=== PATIENT | male | born 1955 | race Asian ===

== ENCOUNTER → 2021-04-13 | Outpatient (CLI) | payer OTHER ==
[~2021-04-13] MED LIST: IOPAMIDOL 370 MG/ML 200 ML INFUS..BTL INJ ONE; SODIUM CHLORIDE 0.9% 100 ML ONE
[2021-04-13 10:59] LABS: CREATININE, SERUM 1.19 mg/dL (0.72-1.25)
== END ==
LOC: CT 09:26
PROVIDERS: ATTEND Urology
DX: D41.02 Neoplasm of uncertain behavior of left kidney (principal)
CPT/HCPCS: 36415; 74178; 82565; 84520; J7050; Q9967